=== PATIENT | female | born 1955 | race Hispanic/Latino ===

== ENCOUNTER 2016-11-05 15:08 | Emergency (ER) | payer MEDICARE ==
[2016-11-05 15:10] VITALS: BMI 43.0
[2016-11-05 15:17] VITALS: RESP 18; TEMP 98.2; O2SAT 97
--- NOTE | 2016-11-05 15:45 | ED PDOC ---
Arrival/HPI - General Historian: Patient - History of Present Illness Time/Duration: < week Symptom Onset: Sudden Symptom Course: Unchanged Quality: Tightness, Cramping Severity Level: 10 - General Time Seen by Provider: 11/05/16 15:17 - History of Present Illness Narrative History of Present Illness (Text): 61 F with pmh of DM, DJD, Fibromyalga presents to the ED with back pain. Pt states that her pain first started 4-5 days ago when she was lifting water bottle cases. She states that she has tried taking Cymbalta and Klonopin which she takes for her Fibromylaga but it has not alleviated her symptoms. She went to her PMD which stated come to the ED. She denies any urinary or fecal incontinence. No other complaints. She denies any key, dizziness, f/c, cp, sob, abd pain, urinary or bm changes. (Isidro Haddad) Past Medical History - Provider Review Nursing Documentation Reviewed: Yes - Tetanus Immunization Tetanus Immunization: Unknown - Cardiac Hx Pacemaker: No - Neurological Hx Paralysis: No - Hematological/Oncological Hx Blood Transfusions: No Hx Blood Transfusion Reaction: No - Musculoskeletal/Rheumatological Hx Arthritis: Yes - Gastrointestinal Hx Gastroesophageal Reflux: Yes - Psychiatric Hx Emotional Abuse: No Hx Physical Abuse: No Hx Substance Use: No - Surgical History Hx Cholecystectomy: Yes Hx Hysterectomy: Yes Hx Tubal Ligation: (endometriosis) - Anesthesia Hx Anesthesia Reactions: Yes (HEADACHES) Hx Malignant Hyperthermia: No - Suicidal Assessment Feels Threatened In Home Enviroment: No Family/Social History - Physician Review Nursing Documentation Reviewed: Yes Family/Social History: No Known Family HX Hx Alcohol Use: Yes (ON OCCASION) Hx Substance Use: No Allergies/Home Meds Allergies/Adverse Reactions: Allergies fentanyl Allergy (Severe, Verified 10/20/15 12:52) SWELLING/ITCHING Penicillins Allergy (Severe, Verified 10/20/15 12:52) SWELLING/ ITCHING vancomycin Allergy (Severe, Verified 10/20/15 12:52) SWELLING/ITCHING acetaminophen [From Percocet] Adverse Reaction (Severe, Verified 10/21/15 09:19) abd. pain meloxicam [From Mobic] Adverse Reaction (Severe, Verified 10/21/15 09:19) abd. pain oxycodone HCl [From Percocet] Adverse Reaction (Severe, Verified 10/21/15 09:19) abd. pain KYOLIC Adverse Reaction (Intermediate, Uncoded 10/20/15 12:52) STOMACH PAINS Home Medications: Home Meds Medication Instructions Recorded Confirmed DULoxetine [Cymbalta] 30 mg PO BID 07/18/13 10/21/15 Fenofibrate [Tricor] 145 mg PO QPM 07/18/13 10/21/15 Lisinopril [Zestril] 20 mg PO QAM 07/18/13 10/21/15 Cholecalciferol (Vitamin D3) 400 unit PO DAILY 10/20/15 10/21/15 [Vitamin D3] GlipiZIDE SR [Glucotrol XL] 5 mg PO QAM 10/20/15 10/21/15 Glucosamine/MSM/Chondroitin A 1 each PO DAILY 10/20/15 10/21/15 [Triple Flex Caplet] [place] 300 mg PO DAILY 10/20/15 Metformin HCl [Glucophage] 500 mg PO DIN 10/20/15 10/21/15 Milk Thistle [Optimum Milk Thistle] 175 mg PO DAILY 10/20/15 10/21/15 [place]-3 Fatty Acids/Fish Oil 1 each PO DAILY 10/20/15 10/21/15 [[place] 3 Fish Oil Softgel] Pravastatin Sodium [Pravachol] 80 mg PO QPM 10/20/15 10/21/15 Tramadol HCl [Ultram] 50 mg PO Q6H PRN 10/20/15 10/21/15 clonazePAM [clonAZEPAM] 1 mg PO BID 10/20/15 10/21/15 Omeprazole [Prilosec] 40 mg PO DAILY 10/21/15 10/21/15 Review of Systems - Physician Review All systems were reviewed & negative as marked: Yes - Review of Systems Respiratory: absent: SOB, Cough Cardiovascular: absent: Chest Pain, Palpitations Musculoskeletal: Back Pain. absent: Arthralgias, Neck Pain Physical Exam Vital Signs Reviewed: Yes Temperature: Afebrile Blood Pressure: Normal Pulse: Regular Respiratory Rate: Normal Appearance: Positive for: Well-Appearing, Non-Toxic, Comfortable Mental Status: Positive for: Alert and Oriented X 3 - Systems Exam Head: Present: Atraumatic, Normocephalic Pupils: Present: PERRL Extroacular Muscles: Present: EOMI Conjunctiva: Present: Normal Mouth: Present: Moist Mucous Membranes Neck: Present: Normal Range of Motion Respiratory/Chest: Present: Clear to Auscultation, Good Air Exchange. No: Respiratory Distress, Accessory Muscle Use Cardiovascular: Present: Regular Rate and Rhythm, Normal S1, S2. No: Murmurs Abdomen: Present: Normal Bowel Sounds. No: Tenderness, Distention, Peritoneal Signs Back: Present: Normal Inspection, Paraspinal Tenderness (L sided lumboscaral paraspinal tenderness. Neg Straight leg test ). No: Midline Tenderness Upper Extremity: Present: Normal Inspection. No: Cyanosis, Edema Lower Extremity: Present: Normal Inspection. No: Edema Neurological: Present: GCS=15, CN II-XII Intact, Speech Normal Skin: Present: Warm, Dry, Normal Color. No: Rashes Psychiatric: Present: Alert, Oriented x 3, Normal Insight, Normal Concentration Vital Signs Temp Pulse Resp BP Pulse Ox 11/05/16 16:46 79 18 138/69 97 11/05/16 15:16 98.2 F 83 18 140/74 97 Medical Decision Making ED Course and Treatment: 11/05/16 15:56 Seen and examined with the resident. Our history and physical exam reveals a morbidly obese woman who was lifting some heavy objects several days ago and developed left lower back pain. The pain radiates into her left lower extremity. She complains of numbness, but no weakness. There was no direct blow. No abdominal pain nausea vomiting or diarrhea. No genitourinary symptoms. (Paramjit Burnett) Impression: 61 F with pmh of DM, DJD, Fibromyalga presents to the ED with back pain. Differential Diagnosis included but are not limited to: Plan: - Xray LS spine - Pain control with Toradol 30mg stat - Flexaril 10mg stat - Reassess and disposition Progress Notes: 11/05/16 17:12 LS spine xray shows no acute fractures or pathology. On reevaluation the patient feels better and is in no acute distress. I have discussed the results and plan with the patient, who expresses understanding. Patient given the opportunity to ask question, all questions were answered and there is agreement with the plan to discharge the patient home with prescription for Flexeril and Ultram. Patient is stable for discharge. Patient was instructed to follow up with physician/clinic in 1-2 days or return if symptoms persist/worsen or new concerning symptoms arise. Pt currently resting in bed comfortably. States her back pain has improved. Eager to go home. (Ramcarol,Isidro) - RAD Interpretation Radiology Orders: 11/05/16 15:34 LS SPINE WITH OBL > 18 YRS OLD [RAD] Stat - Medication Orders Current Medication Orders: Discontinued Medications Cyclobenzaprine HCl (Flexeril) 10 mg PO STAT STA Stop: 11/05/16 15:34 Last Admin: 11/05/16 15:56 Dose: 10 mg Ketorolac Tromethamine (Toradol) 30 mg IVP STAT STA Stop: 11/05/16 15:34 Last Admin: 11/05/16 15:56 Dose: 30 mg Disposition/Present on Arrival - Present on Arrival Any Indicators Present on Arrival: No History of DVT/PE: No History of Uncontrolled Diabetes: No Urinary Catheter: No History Surgical Site Infection Following: None - Disposition Have Diagnosis and Disposition been Completed?: Yes Disposition Time: 17:12 Patient Plan: Discharge - Disposition Diagnosis: Back pain Disposition: HOME/ ROUTINE Patient Problems: Current Active Problems Problem Status Onset Back pain Acute Condition: IMPROVED Additional Instructions: Karri Oscar, thank you for letting us take care of you today. Your provider was Dr Burnett. You were treated for Back pain. The emergency medical care you received today was directed at your acute symptoms. If you were prescribed any medication, please fill it and take as directed. It may take several days for your symptoms to resolve. Return to the Emergency Department if your symptoms worsen, do not improve, or if you have any other problems. Please contact your doctor or call one of the physicians/clinics you have been referred to that are listed on the Patient Visit Information form that is included in your discharge packet. Bring any paperwork you were given at discharge with you along with any medications you are taking to your follow up visit. Our treatment cannot replace ongoing medical care by a primary care provider (PCP) outside of the emergency department. Thank you for allowing the [facility] team to be part of your care today. Follow up with your PMD with in 1-2 days. Consider follow up with orthopedic / pain management doctor if your symptoms worsen for further imaging. If your symptoms worsen come back to the emergency department . Prescriptions: Cyclobenzaprine [Flexeril] 5 mg PO TID #15 tab Referrals: Augusto Raoms MD [Primary Care Provider] - Follow up with primary
[2016-11-05 16:47] VITALS: BP 138/69; PULSE 79
--- NOTE | 2016-11-05 18:10 | RAD ---
PROCEDURE: Radiographs of the Lumbar Spine. HISTORY: back pain No antecedent history of trauma provided. COMPARISON: No prior. FINDINGS: BONES: Normal alignment. No listhesis. No fracture. DISC SPACES: Unremarkable. OTHER FINDINGS: None. IMPRESSION: No significant or acute findings to account for/ related to the clinical presentation.
== END 2016-11-05 17:44 | disposition home or self-care (01) ==
LOC: ED 15:08
DX: M54.9 Dorsalgia, unspecified (principal)
CPT/HCPCS: 72110; 96374; 99283; J1885